=== PATIENT | male | born 1975 | race Caucasian/White ===

== ENCOUNTER 2023-02-19 14:13 | Outpatient (CLI) | payer OTHER, SELFPAY ==
--- NOTE | 2023-02-19 14:24 | MR_ITS ---
WS: [id number] MRI NECK WITH CONTRAST TECHNIQUE: Noncontrast axial T1, axial T2 FSE fat sat, coronal T2 fat sat, coronal T1, coronal T1 fat sat, sagittal T2 fat sat, plus contrast enhanced coronal, sagittal, and axial T1 fat sat images obta ined. CLINICAL INFORMATION: CYST AND MUCOCELE OF NOSE AND NASAL SINUS COMPARISON: None. FINDINGS: Mild RIGHT to LEFT nasal septal deviation measuring 4 to 5 mm. Normal posterior fossa. Normal vascula r flow voids at the skull base. Partially visualized intracranial contents appear normal. Visualized orbits are normal. Complete polypoid opacification of the LEFT maxillary sinus. Retention cyst or hui yp RIGHT maxillary sinus measuring 14 mm. Mild mucosal thickening ethmoid air cells. Sphenoid sinuses are well aerated. Polypoid opacification LEFT maxillary sinus extends into the maxillary sinus ostia with opacification of the LEFT ostiomeatal unit. Bilateral mike bullosa. RIGHT maxillary sinus ost ia is widely patent. Normal posterior nasopharynx. Normal parapharyngeal fat. No evidence of supraglottic or glottic mass. Tongue base appears normal. No cervical lymphadenopathy. Mild spondylitic changes cervical spine with straightening of the normal cervical lordosis. Mild disc bulging worse at C3-C4, C4-C5 and C5-C6 with mild central canal stenosis. Slight contact of the cerv ical cord. Parotid glands are normal. Normal submandibular glands. Normal optic chiasm and pituitary infundibulu m. Normal cavernous sinuses and Meckel's cave. Proximal 7th and 8th cranial nerves appear normal. Mas toid air cells are well aerated. Evidence of prior postoperative changes paranasal sinus surgeries. MR/MR orbit face neck wo/w* [id number] IMPRESSION: 1. Lobulated polypoid mucosal thickening or polyposis with complete opacificat ion LEFT maxillary sinus. This extends into the maxillary sinus ostia with opac ification of the LEFT [facility] 2. Small retention cyst or polyp RIGHT maxillary sinus which is otherwise martínez nt. This measures 14 mm. RIGHT maxillary sinus ostia is patent. 3. Evidence of prior paranasal sinus surgeries with maxillary antrostomies and ethmoidectomies. 4. Mild mucosal thickening in the ethmoid air cells. Sphenoid sinuses are martínez nt. 5. Mucosal thickening with enlarged inferior turbinates. 6. Normal posterior nasopharynx. Normal parapharyngeal fat. 7. Normal salivary glands. 8. No cervical lymphadenopathy. 9. Mild central canal stenosis in the cervical spine at C3-C5 with mild disc b ulging.
[2023-02-19] MEDS: gadobenate dimeglumine 20 mL vial IV (16:47)
== END 2023-02-19 14:14 | disposition home or self-care (01) ==
LOC: RAD 14:17
PROVIDERS: PCP Family Medicine; Visit Provider Specialist
DX: G50.1 Atypical facial pain (principal); J34.1 Cyst and mucocele of nose and nasal sinus
CPT/HCPCS: 70543; A9577